=== PATIENT | male | born 1965 | race Hispanic/Latino ===

== ENCOUNTER 2020-12-14 13:33 | Observation (INO) | payer BC ==
[~2020-12-14] VITALS: Ht 172.7 cm; Wt 72.6 kg
[2020-12-14 13:35] VITALS: BP 110/67
[2020-12-14 15:09] LABS: BASOPHILS % (AUTO) 0.1 % (0.0-5.0); LYMPHOCYTES % (AUTO) 3.9 % (21.0-51.0); MEAN CORPUSCULAR HEMOGLOBIN 31.5 pg (27.0-33.0); MEAN CORPUSCULAR HGB CONC 34.4 g/dL (32.0-36.0); MEAN CORPUSCULAR VOLUME 91.4 fL (79-99); MONOCYTES % (AUTO) 4.1 % (3.0-13.0); NEUTROPHILS % (AUTO) 91.5 % (40.0-77.0); PLATELET COUNT (AUTO) 261 K/uL (130-400); RED BLOOD CELL COUNT(AUTO) 3.94 MIL/uL (4.50-6.20); RED CELL DISTRIBUTION WIDTH 12.5 % (11.0-15.5)
[2020-12-14 15:21] VITALS: BP 118/73
[2020-12-14 15:26] LABS: CARBON DIOXIDE 27 mmol/L (21-32); CHLORIDE 106 mmol/L (101-111); CREATININE 0.7 mg/dL (0.5-1.5); GLOMERULAR FILTR. RATE CALC 124 mL/min (>60); GLUCOSE,RANDOM 117 mg/dL (70-105); POTASSIUM 5.3 mmol/L (3.5-5.1); SODIUM SERUM 139 mmol/L (136-145); UREA NITROGEN, BLOOD 18 mg/dL (7-18)
[2020-12-14 15:26] LABS: APPEARANCE,URINE CLOUDY (CLEAR); BILIRUBIN,URINE SMALL (NEGATIVE); COLOR,URINE YELLOW (YELLOW); GLUCOSE, URINE (UA) NEGATIVE (NEGATIVE); KETONES,URINE NEGATIVE (NEGATIVE); LEUKOCYTE ESTERASE ,URINE NEGATIVE (NEGATIVE); NITRATE,URINE NEGATIVE (NEGATIVE); OCCULT BLOOD,URINE LARGE (NEGATIVE); PROTEIN,URINE 30 mg/dL (NEGATIVE); UROBILINOGEN,URINE 0.2 mg/dL (0.2-1.0)
[2020-12-14 15:30] LABS: ALANINE AMINOTRANSFERASE 48 U/L (12-78); ALBUMIN 3.3 g/dL (3.5-5.0); ASPARTATE AMINOTRANSFERASE 54 U/L (10-37); BILIRUBIN,TOTAL 0.5 mg/dL (0.2-1.0)
[2020-12-14 15:36] LABS: RBC,URINE TNTC /HPF (0-1)
[2020-12-14 15:37] LABS: BACTERIA,URINE Few /HPF (None Seen)
[2020-12-14 15:38] LABS: SQUAMOUS EPITHELIAL CELL,UR None Seen /HPF (0-2)
[2020-12-14 15:53] LABS: CRP QUANTITATIVE < 2.00 mg/L (0.00-9.0)
[2020-12-14] MEDS ORDERED: KETOROLAC 30MG VIAL (30MG/ML) IV ONE (16:00)
[2020-12-14] MEDS ORDERED: ONDANSETRON 4MG INJ IVP ONE (16:00)
[2020-12-14] MEDS ORDERED: CEFTRIAXONE 1G VIAL ONE (16:39)
[2020-12-14] MEDS ORDERED: MORPHINE 4 MG SYG ONE (16:49)
[2020-12-14] MEDS ORDERED: 0.9%NACL 1000ML 1,000 ML IV ONE (17:00)
[2020-12-14] MEDS ORDERED: CEFTRIAXONE 1G VIAL IVP ONE (17:00)
[2020-12-14] MEDS ORDERED: MORPHINE 4 MG SYG IV ONE (17:00)
[2020-12-14] MEDS ORDERED: MORPHINE 4 MG SYG IV PRN (18:30)
[2020-12-14] MEDS ORDERED: ACETAMINOPHEN 325 MG TAB PO PRN ×2 (18:30)
[2020-12-14] MEDS ORDERED: ONDANSETRON 4MG INJ IV PRN (18:30)
[2020-12-14] MEDS ORDERED: ACETAMINOPHEN WITH CODEINE 1 TAB TAB PO PRN (18:30)
[2020-12-14] MEDS ORDERED: DIPHENHYDRAMINE HCL 25 MG CAPSULE PO PRN (18:30)
[2020-12-14 20:29] VITALS: BP 102/60
[2020-12-14] MEDS: FAMOTIDINE 20MG TAB PO SCH (20:29)
[2020-12-14] MEDS: 0.9%NACL 1000ML 1,000 ML IV SCH (20:29)
[2020-12-14] MEDS ORDERED: FUROSEMIDE 20MG VIAL IV ONE (22:00)
[2020-12-15 01:45] VITALS: BP 111/72
[2020-12-15 07:20] LABS: HEMATOCRIT 30.6 % (42-54); MEAN CORPUSCULAR HEMOGLOBIN 31.1 pg (27.0-33.0); MEAN CORPUSCULAR HGB CONC 33.7 g/dL (32.0-36.0); MEAN CORPUSCULAR VOLUME 92.4 fL (79-99); RED BLOOD CELL COUNT(AUTO) 3.31 MIL/uL (4.50-6.20); RED CELL DISTRIBUTION WIDTH 12.5 % (11.0-15.5); WHITE BLOOD COUNT (AUTO) 5.6 K/uL (4.8-10.8)
[2020-12-15 07:56] VITALS: BP 107/68
[2020-12-15] MEDS: 0.9%NACL 1000ML 1,000 ML IV SCH (08:23)
[2020-12-15] MEDS ORDERED: BISACODYL 10 MG SUPP.RECT RC SCH (08:30)
[2020-12-15] MEDS ORDERED: 0.9%NACL 50ML 50 ML IV SCH ×2 (08:30→13:00)
[2020-12-15] MEDS ORDERED: PIP/TAZ ZOSYN 3.375G 3.375 GM VIAL IVPB SCH (08:30)
[2020-12-15] MEDS ORDERED: ZOSYN 3.375GM +NS 50ML IV SCH (08:30)
[2020-12-15] MEDS: FAMOTIDINE 20MG TAB PO SCH ×2 (08:36→22:13)
[2020-12-15] MEDS: TAMSULOSIN HCL 0.4 MG CAP.ER.24H PO SCH (08:36)
[2020-12-15] MEDS ORDERED: CEFTRIAXONE 1G VIAL IV SCH (09:00)
[2020-12-15] MEDS ORDERED: ENOX40DI9 SQ (09:08)
[2020-12-15] MEDS ORDERED: ACET500P24 PO (09:08)
[2020-12-15] MEDS ORDERED: GABA300S PO (09:08)
[2020-12-15 09:17] LABS: INR 1.1 (0.85-1.15); PROTHROMBIN TIME 11.9 SEC (9.6-11.6)
[2020-12-15 09:18] LABS: PARTIAL THROMBOPLASTIN TIME 22.5 SEC (26.3-35.5)
[2020-12-15 12:58] VITALS: BP 116/72
[2020-12-15] MEDS ORDERED: MAGNESIUM CITRATE 296 ML SOLUTION PO ONE (14:00)
[2020-12-15] MEDS: ZOSYN 3.375GM +NS 50ML IV SCH ×2 (14:29→22:13)
[2020-12-15] MEDS ORDERED: KETOROLAC 10 MG TABLET PO ONE (16:30)
[2020-12-15 17:32] VITALS: BP 105/70
[2020-12-15 19:25] VITALS: BP 107/65
[2020-12-15] MEDS ORDERED: KETOROLAC 10 MG TABLET PO PRN (22:00)
[2020-12-15 23:23] VITALS: BP 109/72
[2020-12-16] MEDS: ZOSYN 3.375GM +NS 50ML IV SCH (05:28)
[2020-12-16 06:17] VITALS: BP 115/72
[2020-12-16 07:21] VITALS: BP 114/71
[2020-12-16 07:22] LABS: BASOPHILS % (AUTO) 0.2 % (0.0-5.0); HEMATOCRIT 28.9 % (42-54); LYMPHOCYTES % (AUTO) 8.3 % (21.0-51.0); MEAN CORPUSCULAR HEMOGLOBIN 31.7 pg (27.0-33.0); MEAN CORPUSCULAR HGB CONC 34.3 g/dL (32.0-36.0); MEAN CORPUSCULAR VOLUME 92.6 fL (79-99); MONOCYTES % (AUTO) 10.2 % (3.0-13.0); NEUTROPHILS % (AUTO) 80.1 % (40.0-77.0); PLATELET COUNT (AUTO) 192 K/uL (130-400); RED BLOOD CELL COUNT(AUTO) 3.12 MIL/uL (4.50-6.20); RED CELL DISTRIBUTION WIDTH 12.7 % (11.0-15.5); WHITE BLOOD COUNT (AUTO) 4.1 K/uL (4.8-10.8)
[2020-12-16 07:52] LABS: ALBUMIN 2.9 g/dL (3.5-5.0); BILIRUBIN,TOTAL 0.3 mg/dL (0.2-1.0); CREATININE 0.9 mg/dL (0.5-1.5); POTASSIUM 3.9 mmol/L (3.5-5.1); TOTAL PROTEIN, SERUM 6.1 g/dL (6.0-8.3)
[2020-12-16] MEDS: TAMSULOSIN HCL 0.4 MG CAP.ER.24H PO SCH (09:17)
[2020-12-16] MEDS: FAMOTIDINE 20MG TAB PO SCH (09:18)
[2020-12-16 09:19] VITALS: BP 118/82
[2020-12-16] MEDS ORDERED: AMOX-426 PO (09:42)
[2020-12-16] MEDS ORDERED: KETO10 PO (09:42)
== END 2020-12-16 10:55 | disposition home or self-care (01) ==
LOC: EDH 13:33 → EDHIP 18:14
PROVIDERS: ADMIT Internal Medicine Critical Care Medicine; ATTEND Internal Medicine Critical Care Medicine
DX: R55 Syncope and collapse (principal); Z20.822 Contact with and (suspected) exposure to COVID-19; S30.1XXA Contusion of abdominal wall, initial encounter; N20.0 Calculus of kidney; E87.5 Hyperkalemia; K66.1 Hemoperitoneum; I10 Essential (primary) hypertension; F98.5 Adult onset fluency disorder; C49.9 Malignant neoplasm of connective and soft tissue, unspecified; N39.0 Urinary tract infection, site not specified; Z85.831 Personal history of malignant neoplasm of soft tissue; Z79.899 Other long term (current) drug therapy; X58.XXXA Exposure to other specified factors, initial encounter
CPT/HCPCS: 36415 ×3; 70450; 71045; 74176; 80048; 80053 ×2; 81001; 83605; 84484; 85025 ×2; 85027; 85378; 85384; 85610; 85730; 86140; 87040 ×2; 87077 ×2; 87088; 87186 ×2; 87635; 93005 ×2; 93880; 96361 ×2; 96365; 96366 ×2; 96375 ×2; 96376; 99285; G0378 ×40; J0696; J1885; J1940; J2270 ×2; J2405 ×2; J2543 ×4; J7030